=== PATIENT | male | born 1965 | race Caucasian/White ===

== ENCOUNTER 2019-02-19 12:07 | Emergency (ER) | payer OTHER ==
[2019-02-19 13:36] LABS: Hemoglobin 11.7 g/dL (14.0-18.0); Mean Corpuscular HGB CONC 34.3 g/dL (32.0-36.0); Mean Corpuscular Hemoglobin 33.1 pg (27.0-31.0); Mean Corpuscular Volume 96.7 fL (78.0-98.0); RBC Distribution Width 13.6 % (11.5-14.5); Red Blood Cell (RBC) Count 3.55 mill/uL (4.70-6.10); White Blood Cell (WBC) Count 16.4 thou/uL (4.8-10.8)
--- NOTE | 2019-02-19 13:42 | CT ---
CT BRAIN WITHOUT CONTRAST: HISTORY:Fall, loss of consciousness COMPARISON:None FINDINGS: No evidence of acute infarct, hemorrhage, midline shift or abnormal extra-axial fluid collections is seen. The ventricular size is appropriate and the basilar cisterns are patent. The bony calvarium is intact. There is fluid in the left maxillary sinus IMPRESSION: No CT evidence of acute intracranial process.
[2019-02-19 13:43] LABS: Mean Platelet Volume 10.5 fL (7.4-10.4); Platelet Count 90 thou/uL (130-400)
[2019-02-19 13:49] LABS: ALT (SGPT) 192 U/L (8-55); AST (SGOT) 304 U/L (5-34); Albumin 2.3 g/dL (3.5-5.0); Alkaline Phosphatase 496 U/L (40-150); Anion Gap 15 mmol/L (10-20); BUN (Urea Nitrogen) 41 mg/dL (8.4-25.7); Bilirubin, Total 2.3 mg/dL (0.2-1.2); CK (CPK) 476 U/L (30-200); Calc. Creatinine Clearance 0 mL/min (70-130); Calcium 8.2 mg/dL (7.8-10.44); Carbon Dioxide 26 mmol/L (22-29); Chloride 91 mmol/L (98-107); Estimated GFR-MDRD 77; Globulin 3.2 g/dL (2.4-3.5); Glucose 112 mg/dL (70-105); Lipase 8 U/L (8-78); Protein, Total 5.5 g/dL (6.0-8.3); Sodium 129 mmol/L (136-145)
[2019-02-19 13:53] LABS: Acetaminophen Less than 6.0 mcg/mL (10.0-30.0); Alcohol Less than 10 mg/dL (Less than 10); Salicylate Less than 8.0 mg/dL (15.0-30.0)
[2019-02-19 13:56] LABS: Band 22 % (5-11); Large Platelets SLIGHT; Lymphocytes 16 % (21-51); MDiff Complete? YES; Macrocytosis SLIGHT = 6-15 cells (100X) (0-5/hpf); Metamyelocyte 2 % (0-0); Monocytes 13 % (0-10); Neutrophil 46 % (42-75); Pappenheimer Bodies SLIGHT = 1-2 cells (100X) (None Seen); Platelet Morphology Comment Appears Decreased; Polychromasia SLIGHT = 2-3 cells (100X) (0-2/hpf); Reactive Lymphocytes 1 % (0-10); Stomatocytes SLIGHT = 2-5 cells (100X) (0-1/hpf); Toxic Granulation SLIGHT; Vacuoles SLIGHT
--- NOTE | 2019-02-19 14:24 | RAD ---
CHEST ONE VIEW: 02/19/19 HISTORY: Altered mental status. COMPARISON: None. FINDINGS: Lungs are without confluent air space consolidation, pneumothorax or effusion. The cardiac silhouette and mediastinal contours are within normal limits. No acute osseous abnormality. IMPRESSION: No acute intrathoracic abnormality. POS: [facility]
[2019-02-19 14:29] LABS: Base Excess-Venous 2.8 mmol/L (-2.0 to 3.0); Bicarbonate (HCO3v) 27.5 mmol/L (22.0-28.0); CO2 Tension (PvCO2) 41.5 mmHg (40.0-50.0); Calcium, Ionized 1.04 mmol/L (See Comments:); Chloride 96 mmol/L (98-107); Hemoglobin - Calc 11.9 g/dL (14.0-18.0); Potassium 2.7 mmol/L (3.5-5.1); Sodium 133 mmol/L (138-145); T. Carbon Dioxide 28.8 mmol/L (22.0-28.0); vO2 Saturation-calc 79.4 % (60.0-85.0)
--- NOTE | 2019-02-19 14:31 | CT ---
CT CERVICAL SPINE WITH CORONAL AND SAGITTAL REFORMATIONS: 02/19/19 HISTORY: Fall with loss of consciousness. Neck pain. FINDINGS/IMPRESSION: No fracture, subluxation or facet malalignment is seen. Degenerative changes are present. POS: [facility]
[2019-02-19] MEDS ORDERED: Potassium Chloride 20 MEQ TAB ONE (16:06)
[2019-02-19] MEDS ORDERED: cefTRIAXone\\ROCEPHIN 2 GM VIAL ONE (16:06)
[2019-02-19 20:27] LABS: Bilirubin Small (Negative); Blood, Urine Small (Negative); Clarity CLOUDY (Clear); Glucose, Urine (Dipstick) 100 mg/dL (Negative); Leukocyte Large (Negative); Nitrite Positive (Negative); Protein, Urine (Dipstick) 30 mg/dL (Neg-Trace); Specific Gravity, Urine 1.021 (1.002-1.036)
[2019-02-19 20:30] LABS: Bacteria/HPF 4+ HPF (None Seen); Hyaline Casts/LPF 0-3 HYALINE CAST LPF (0-3 Hyaline); Pathc Cast-AUWi Flag 0.95 (0-2.49); Squamous Epithelial 0-3 HPF (0-3)
[2019-02-19 20:34] LABS: Yeast-AUWi Flag 71.6 (0-25.0)
[2019-02-19 20:39] LABS: Amphetamine Not Detected (NotDetected); Barbiturates Screen Not Detected (NotDetected); Benzodiazepine Screen Not Detected (NotDetected); Cocaine Metabolite Screen Not Detected (NotDetected); Medtox Control Line Valid? VALID (VALID); Medtox Reader # READER 4; Methadone Not Detected (NotDetected); Methamphetamine Not Detected (NotDetected); Opiate Screen Not Detected (NotDetected); Oxycodone Screen Not Detected (NotDetected); Phencyclidine (PCP) Not Detected (NotDetected); Renal Epithelial 0-3 HPF (0-3); THC/Cannabinoid Screen Not Detected (NotDetected); Tricyclic Screen Not Detected (NotDetected)
== END 2019-02-19 20:57 ==
LOC: ERS 12:07
DX: A41.9 Sepsis, unspecified organism (principal); E87.6 Hypokalemia; F43.10 Post-traumatic stress disorder, unspecified; F41.9 Anxiety disorder, unspecified
CPT/HCPCS: 36415; 70450; 71045; 72125; 80053; 80306; 80307; 81003; 81015; 82010; 82140; 82274; 82330; 82550; 82803; 83690; 83880; 84443; 84484; 85025; 87040; 93005; 96361; 96365; 96366; J0696; J1956